=== PATIENT | male | born 1975 | race Caucasian/White ===

== ENCOUNTER → 2018-04-24 | Outpatient (CLI) | payer OTHER ==
[~2018-04-24] MED LIST: IBUP600T22 PO; ONDA-2 PO; SUMA50TA34 PO; TRAM-420 PO
--- NOTE | 2018-04-24 18:44 | RADIOLOGY IMAGING REPORT ---
FACILITY: [facility] PATIENT NAME: Hugo Morris : 1975 MR: [id number] V: [id number] EXAM DATE: ORDERING PHYSICIAN: KEELEY DURAN TECHNOLOGIST: Location: [facility] Patient: Hugo Morris : 1975 Visit/Account:[id number] Date of Sevice: 04/24/2018 EXAMINATION: CT abdomen and pelvis without IV contrast HISTORY: Left lower quadrant abdominal pain. History of kidney stones. TECHNIQUE: Axial CT images of the abdomen and pelvis were obtained without IV contrast, with almodovar l and sagittal 2D reconstructed images. One of the following dose optimization techniques was utilized in the performance of this exam: Autom ated exposure control; adjustment of the mA and/or kV according to the patient's size; or use of an i terative reconstruction technique. Specific details can be referenced in the facility's radiology C T exam operational policy. COMPARISON: None. FINDINGS: Evaluation of the solid and viscus parenchymal organs is limited without the benefit of IV contrast. Liver: Negative. Gallbladder and bile ducts: Negative. Spleen: Negative. Pancreas: Negative. Adrenal glands: Negative. Kidneys and ureters: There is a 7 x 7 mm stone or pair of adjacent stones located in the distal left ureter near the UVJ. Despite the size of the distal left ureteral calculus, there is only slight asy mmetric prominence of the left renal collecting system and left ureter. No additional urinary calculi on either side. Normal size and morphology of both kidneys. No right ur eteral calculus. Bowel and peritoneum: The small bowel and colon are normal in caliber, without evidence of obstructi on or any focal inflammatory process. There are a few scattered colonic diverticula, without evidence of diverticulitis. Normal appendix. No free fluid or free intraperitoneal air. Pelvic structures: The urinary bladder is moderately distended and grossly unremarkable by CT. Lymph node assessment: Negative. Vessels: Normal caliber abdominal aorta. Musculoskeletal: Negative. Body wall: Negative. Lung bases: Negative. IMPRESSION: 1. There is a 7 mm stone or pair of adjacent stones located along the distal left ureter near the UVJ . 2. Only slight asymmetric prominence of the left renal collecting system and left ureter. 3. No additional urinary calculi. 4. No other acute intra-abdominal findings. 5. Colonic diverticulosis. Report Dictated By: Chase Carbajal MD at 04/24/2018 6:34 PM Report E-Signed By: Chase Carbajal MD at 04/24/2018 6:41 PM WSN:[id number]
== END ==
LOC: CT 16:26
PROVIDERS: ATTEND Family Medicine
DX: N20.0 Calculus of kidney (principal); K57.30 Diverticulosis of large intestine without perforation or abscess without bleeding
CPT/HCPCS: 74176

== ENCOUNTER → 2018-05-10 | Outpatient (REF) | payer OTHER ==
[2018-05-10 15:24] LABS: PLATELET COUNT, AUTOMATED 208 K/uL (150-450)
== END ==
PROVIDERS: ATTEND Physical Medicine & Rehabilitation
DX: R10.9 Unspecified abdominal pain (principal)
CPT/HCPCS: 82040; 82247; 82310; 82374; 82435; 82565; 82947; 84075; 84132; 84155; 84295; 84450; 84460; 84520; 85025

== ENCOUNTER 2018-06-26 00:51 | Day surgery (SDC) | payer OTHER ==
[~2018-06-26] VITALS: Ht 188 cm; Wt 73.0 kg
[2018-06-26] VITALS (7 sets, daily range): BP systolic 96–129; BP diastolic 62–90
--- NOTE | 2018-06-26 11:06 | NUR ---
1055 SBAR REPORT WAS RECEIVED FROM DR. METZ AND JOSE HUGHES. PATIENT IS BREATHING SPONTANEOUSLY AT A MODERATE RATE AND DEPTH. LUNGS ARE CLEAR. BOWEL SOUNDS ARE HYPERACTIVE. PATIENT IS SLEEPING AT THIS TIME. HE IS IN A LEFT LATERAL POSITION. IS IN THE ROOM.
--- NOTE | 2018-06-26 11:29 | NUR ---
1100 PATIENT CONTINUES TO REST IN BED. VITALS ARE STABLE 1115 PATIENT CONTINUES TO REST. VITALS ARE STABLE 1130 PATIENT CONTINUES TO REST. VITALS ARE STABLE
[2018-06-26] MEDS ORDERED: NORMOSOL R SOLN(*) 1000 ML BAG 1,000 ML IV PRN (11:30)
[2018-06-26] MEDS ORDERED: LIDOCAINE/SOD BICARB 8.4% SYR ID ONE (11:30)
[2018-06-26] MEDS ORDERED: PROPOFOL EMUL(*) 10MG/ML 20 ML 40 ML ONE (11:31)
[2018-06-26] MEDS ORDERED: LIDOCAINE MPF 1% 5 ML VIAL ONE (11:31)
[2018-06-26] MEDS ORDERED: PROPOFOL EMUL(*) 10MG/ML 20 ML 20 ML ONE (11:33)
--- NOTE | 2018-06-26 11:42 | NUR ---
1140 PATIENT WOKE UP. HE STATES HE IS TIRED BUT FEELING WELL. HE WAS MOVED TO ROOM AIR AND IS TOLERATING THIS WELL. 1142 PATIENT WAS MOVED UP IN BED TO A HIGH FOWLERS POSITION. HE BEGAN WORKING ON COFFEE AND CRACKERS.
--- NOTE | 2018-06-26 12:15 | NUR ---
1205 BEGAN DOING ORTHOSTATICS WITH PATIENT. HE DENIES ANY DIZZINESS OR LIGHTHEADEDNESS 1207 PATIENT BEGAN STANDING. HE IS STABLE ON HIS FEET 1208 PATIENT BEGAN GETTING DRESSED.
--- NOTE | 2018-06-26 12:20 | NUR ---
1218 IV WAS TAKEN OUT VIA Wilbert WOOD RN 1220 PATIENT WAS AMBULATORY ON DISCHARGE. HE WAS ACCOMPANIED BY Wilbert WOOD AND HIS . LUNGS ARE CLEAR. BOWEL SOUNDS ARE HYPERACTIVE. DENIES ANY PAIN OR NAUSEA. SEE DISCHARGE ASSESSMENT.
== END 2018-06-26 12:20 | disposition home or self-care (01) ==
LOC: OR 00:51
PROVIDERS: ATTEND Family Medicine
DX: Z12.11 Encounter for screening for malignant neoplasm of colon (principal); Z80.0 Family history of malignant neoplasm of digestive organs; K57.30 Diverticulosis of large intestine without perforation or abscess without bleeding
CPT/HCPCS: 00812; 45378; J2001; J2704